=== PATIENT | female | born 1940 | race Caucasian/White ===

== ENCOUNTER 2019-02-07 19:43 | Emergency (ER) | payer MEDICARE ==
--- NOTE | 2019-02-07 20:12 | EDM.PDOC ---
ED HPI GENERAL MEDICAL PROBLEM - General Chief Complaint: General Stated Complaint: MEDICAL [facility]IA [facility] Time Seen by Provider: 02/07/19 20:05 Source of Information: Reports: Patient, EMS, RN Notes Reviewed History Limitations: Reports: No Limitations - History of Present Illness INITIAL COMMENTS - FREE TEXT/NARRATIVE: 78-year-old female presents emergency department today complaint of dizziness, she arrived by EMS. At this time she states her dizziness has resolved and she feels back to normal pass to go home. She states she's been having dizziness on and off the last 2 years has not followed up with your nose and throat and has not had any physical therapy this, describes her dizziness that is positional feels like the room is spinning when she gets her head a certain position Past Medical History Neurological History: Reports: Vertigo Social & Family History - Tobacco Use Smoking Status *Q: Never Smoker ED ROS GENERAL - Review of Systems Review Of Systems: See Below Constitutional: Reports: No Symptoms HEENT: Reports: Vertigo Respiratory: Reports: No Symptoms Cardiovascular: Reports: No Symptoms GI/Abdominal: Reports: No Symptoms ED EXAM, GENERAL - Physical Exam Exam: See Below Exam Limited By: No Limitations General Appearance: Alert, WD/WN, No Apparent Distress Respiratory/Chest: No Respiratory Distress, Lungs Clear, Normal Breath Sounds, No Accessory Muscle Use, Chest Non-Tender Cardiovascular: Regular Rate, Rhythm, No Murmur Course - Vital Signs Last Recorded V/S: Last Vital Signs Temp 97.9 F 02/07/19 20:03 Pulse 65 02/07/19 20:03 Resp 16 02/07/19 20:03 BP 159/77 H 02/07/19 20:03 Pulse Ox 94 L 02/07/19 20:03 Departure - Departure Time of Disposition: 20:12 Disposition: Home, Self-Care 01 Condition: Fair Clinical Impression: Dizziness - Discharge Information Referrals: PCP,None [Primary Care Provider] - Additional Instructions: Consider physical therapy and/or possible referral to ear nose and throat follow -up with your primary care for further evaluation next 3-5 days - Assessment/Plan Plan: Assessment Acuity = acute Site and laterality = dizziness Etiology = suspicious for benign positional vertigo Manifestations = none Location of injury = Home Lab values = none Plan Discharge home follow-up primary care in the next 3-5 days for reevaluation and consider physical therapy or possible referral to ear nose throat This note was dictated using [employer] voice recognition software please call with any questions on syntax or grammar.
== END 2019-02-07 20:18 | disposition home or self-care (01) ==
LOC: JP.ED 19:43
DX: R42 Dizziness and giddiness (principal)
CPT/HCPCS: 99283

== ENCOUNTER 2021-03-29 15:09 | Emergency (ER) | payer MEDICARE ==
--- NOTE | 2021-03-29 16:36 | EDM.PDOC ---
ED HPI GENERAL MEDICAL PROBLEM - General Chief Complaint: General Stated Complaint: FEELS LIKE SHE WILL FAINT Time Seen by Provider: 03/29/21 15:52 Source of Information: Reports: Patient History Limitations: Reports: No Limitations - History of Present Illness INITIAL COMMENTS - FREE TEXT/NARRATIVE: 80 yo female presents with GERD and need to take a deep breath when she is hav ing the acid reflex. She was taking omeprazole but stopped and after she stopped she increased her Rolaids use dramatically. today she was having reflex and began to worry, she did find relief with rolaids and pain has resolved presently. She has also been having brief episodes of dizziness with position change and is concerned about her ears. she does have seasonal allergies and they have been very bad lately. overall she is feeling good now. She does feel she hydrates well but does have urinary frequency only at night - Related Data Allergies Allergy/AdvReac Type Severity Reaction Status Date / Time fluconazole [From Diflucan] Allergy Severe Edema Verified 03/29/21 15:53 sucralfate [From Carafate] Allergy Severe Edema Verified 03/29/21 15:53 hydrochlorothiazide Allergy Hives Verified 03/29/21 15:53 lisinopril Allergy Edema Verified 03/29/21 15:53 Home Meds: Home Meds Calcium Carb/Magnesium Hydrox [Rolaids Chewable Tablet] 1 tab PO ASDIRECTED 02/07/19 [History] Cholecalciferol (Vitamin D3) [Vitamin D3] 1,000 unit PO DAILY 02/07/19 [History] amLODIPine [Norvasc] 5 mg PO DAILY 02/07/19 [History] carvediloL [Coreg] 12.5 mg PO BEDTIME 02/07/19 [History] Past Medical History HEENT History: Reports: Other (See Below) Other HEENT History: vertigo Cardiovascular History: Reports: Hypertension Gastrointestinal History: Reports: GERD, Hiatal Hernia Neurological History: Reports: Vertigo Psychiatric History: Reports: Anxiety Endocrine/Metabolic History: Reports: Obesity/BMI 30+ Dermatologic History: Reports: Urticaria Social & Family History - Tobacco Use Tobacco Use Status *Q: Never Tobacco User - Caffeine Use Caffeine Use: Reports: Coffee - Recreational Drug Use Recreational Drug Use: No ED ROS GENERAL - Review of Systems Review Of Systems: See Below Constitutional: Denies: Fever, Chills, Fatigue HEENT: Reports: Ear Pain (pressure), Rhinitis, Sinus Problem Respiratory: Denies: Shortness of Breath, Wheezing, Cough Cardiovascular: Denies: Chest Pain GI/Abdominal: Reports: Abdominal Pain (epigastric ) : Reports: Frequency (at night) ED EXAM, GENERAL - Physical Exam Exam: See Below Exam Limited By: No Limitations General Appearance: Alert, WD/WN, No Apparent Distress Ear Exam: Bilateral Ear: Auricle Normal, TM normal, Other (clear effusion on right) Nose: No Blood, Clear Rhinorrhea, Other (moderate erythema and edema worse on right then left) Throat/Mouth: Normal Inspection, Normal Lips, Normal Teeth, Normal Gums Head: Atraumatic, Normocephalic Neck: Normal Inspection, Supple, Non-Tender, Full Range of Motion. No: Lymphadenopathy (R), Lymphadenopathy (L) Respiratory/Chest: No Respiratory Distress, Lungs Clear, Normal Breath Sounds, No Accessory Muscle Use, Chest Non-Tender. No: Crackles, Rhonchi, Wheezing Cardiovascular: Regular Rate, Rhythm, No Murmur GI/Abdominal: Normal Bowel Sounds, Soft, Non-Tender, No Organomegaly, No Distention, No Abnormal Bruit, No Mass Neurological: Alert, Oriented, Normal Cognition, Normal Gait Psychiatric: Normal Affect, Normal Mood Skin Exam: Warm, Dry, Intact Course - Vital Signs Last Recorded V/S: Last Vital Signs Temp 36.6 C 03/29/21 15:52 Pulse 63 03/29/21 15:52 Resp 16 03/29/21 15:52 BP 162/74 H 03/29/21 15:52 Pulse Ox 96 03/29/21 15:52 Departure - Departure Time of Disposition: 16:32 Disposition: Home, Self-Care 01 Condition: Good Clinical Impression: GERD without esophagitis Eustachian tube dysfunction Qualifiers: Laterality: bilateral Qualified Code(s): H69.83 - Other specified disorders of Eustachian tube, bilateral Allergic rhinitis Qualifiers: Allergic rhinitis trigger: pollen Allergic rhinitis seasonality: seasonal Qualified Code(s): J30.1 - Allergic rhinitis due to pollen - Discharge Information *PRESCRIPTION DRUG MONITORING PROGRAM REVIEWED*: Not Applicable *COPY OF PRESCRIPTION DRUG MONITORING REPORT IN PATIENT HORTENCIA: Not Applicable Instructions: Allergic Rhinitis, Adult Referrals: Gabbi Alcala MD [Primary Care Provider] - Forms: ED Department Discharge Additional Instructions: restart your omeprazole flush nasal passages with nasal saline after your have been outside worry will increase your acid reflex - use journalling to write your worries down or take a walk when you feel the worries and this will help your acid reflex follow-up with your primary care provider to tale about the night time urination Sepsis Event Note (ED) - Evaluation Sepsis Screening Result: No Definite Risk - Focused Exam Vital Signs: Vital Signs Temp Pulse Resp BP Pulse Ox 03/29/21 15:52 36.6 C 63 16 162/74 H 96 03/29/21 15:43 36.6 C 63 16 162/74 H 96
== END 2021-03-29 16:43 | disposition home or self-care (01) ==
LOC: JP.ED 15:09
DX: K21.9 Gastro-esophageal reflux disease without esophagitis (principal); H69.83 Other specified disorders of Eustachian tube, bilateral; J30.1 Allergic rhinitis due to pollen; I10 Essential (primary) hypertension; E66.9 Obesity, unspecified; Z68.24 Body mass index [BMI] 24.0-24.9, adult; Z88.5 Allergy status to narcotic agent; Z88.8 Allergy status to other drugs, medicaments and biological substances
CPT/HCPCS: 99283